=== PATIENT | male | born 1950 ===

== ENCOUNTER → 2017-12-01 19:22 | Outpatient (REF) | payer MEDICARE, SELFPAY ==
[2017-12-01 20:20] LABS: Creatinine Urine Random 86.9 mg/dL
[2017-12-04 10:44] LABS: Estimated Glomerular Filt Rate > 60.0 mL/min (>60)
== END ==
LOC: LAB 19:22
PROVIDERS: Visit Provider Family Medicine
DX: C88.4 Extranodal marginal zone B-cell lymphoma of mucosa-associated lymphoid tissue [MALT-lymphoma] (principal)
CPT/HCPCS: 82565; 82570